=== PATIENT | male | born 1960 | race American Indian/Alaskan Native ===

== ENCOUNTER 2016-11-27 00:12 | Emergency (ER) | payer SELFPAY ==
[2016-11-27 01:14] VITALS: BP 143/90
[2016-11-27 01:37] LABS: Basophils % (Auto) 0.9 % (0.0-1.8); Eosinophils % (Auto) 6.9 % (0.0-4.3); Hematocrit 43.8 % (35.5-45.6); Hemoglobin 14.9 gm/dl (11.8-15.2); Mean Corpuscular HGB Conc 34 % (32-34); Mean Corpuscular Hemoglobin 32 pg (28-32); Mean Corpuscular Volume 95 fl (84-94); Platelet Count 310 K/mm3 (140-440); Red Blood Count 4.59 M/mm3 (3.65-5.03); White Blood Count 7.9 K/mm3 (4.5-11.0)
[2016-11-27 01:53] LABS: Anion Gap 15 mmol/L; BUN/Creatinine Ratio 10.83; Blood Urea Nitrogen 13 mg/dL (9-20); Carbon Dioxide 27 mmol/L (22-30); Chloride 98.6 mmol/L (98-107); Glucose 109 mg/dL (75-100); Sodium 137 mmol/L (137-145)
[2016-11-27 04:45] LABS: Bilirubin,Urine NEG (Negative); Blood,Urine NEG (Negative); Ketones,Urine NEG (Negative); Leukocyte Esterase,Urine NEG (Negative); Mucus,Urine FEW /HPF; Nitrite,Urine NEG (Negative); Protein,Urine <15 mg/dL mg/dL (Negative); Urobilinogen,Urine < 2.0 mg/dL (<2.0)
--- NOTE | 2016-11-27 08:34 | XRay Report ---
ROUTINE CHEST, TWO VIEWS: History: Shortness of breath. PA and lateral views demonstrate the heart and mediastinal contour to be of normal size and shape. The lungs are clear and fully expanded and the soft tissues and bony structures are normal. IMPRESSION: Normal study.
--- NOTE | 2016-11-28 12:28 | ED Elopement Review ---
ED Pt Elopement review - Results review Lab results: Laboratory Tests 11/27/16 11/27/16 11/27/16 01:23 01:23 Unknown WBC 7.9 RBC 4.59 Hgb 14.9 Hct 43.8 MCV 95 H MCH 32 MCHC 34 RDW 14.0 Plt Count 310 Lymph % (Auto) 27.3 Gove % (Auto) 12.1 H Eos % (Auto) 6.9 H Baso % (Auto) 0.9 Lymph # 2.2 Gove # 1.0 H Eos # 0.5 H Baso # 0.1 Seg Neutrophils % 52.8 Seg Neutrophils # 4.2 Sodium 137 Potassium 4.0 Chloride 98.6 Carbon Dioxide 27 Anion Gap 15 BUN 13 Creatinine 1.2 Estimated GFR > 60 BUN/Creatinine Ratio 10.83 Glucose 109 H Calcium 9.0 Troponin T < 0.010 Urine Color Yellow Urine Turbidity Clear Urine pH 6.0 Ur Specific Rake 1.021 Urine Protein <15 mg/dl Urine Glucose (UA) Neg Urine Ketones Neg Urine Blood Neg Urine Nitrite Neg Urine Bilirubin Neg Urine Urobilinogen < 2.0 Ur Leukocyte Esterase Neg Urine WBC (Auto) 1.0 Urine RBC (Auto) 1.0 Urine Mucus Few - Call Back decision Pt Call Back Decision: No action required
== END 2016-11-27 01:30 | disposition left against medical advice (07) ==
LOC: ED 00:12
DX: J45.909 Unspecified asthma, uncomplicated (principal); Z88.2 Allergy status to sulfonamides; Z88.8 Allergy status to other drugs, medicaments and biological substances; Z53.21 Procedure and treatment not carried out due to patient leaving prior to being seen by health care provider
CPT/HCPCS: 36415; 71020; 80048; 81001; 84484; 85025; 93005; 93010